=== PATIENT | female | born 1995 | race Caucasian/White ===

== ENCOUNTER 2017-01-07 17:45 | Emergency (ER) | payer OTHER ==
[2017-01-07] MEDS ORDERED: SODIUM CHLORIDE 0.9% 1,000 ML IV STA (18:38)
[2017-01-07] MEDS ORDERED: ACETAMINOPHEN TAB 500 MG TAB PO STA (18:38)
--- NOTE | 2017-01-07 18:45 | ED ---
Abdominal Pain HPI - General Chief Complaint: Abdominal Pain Stated Complaint: ABDOMINAL PAIN, 8 WEEKS Time Seen by Provider: 01/07/17 18:34 Source: patient, RN notes reviewed Mode of arrival: ambulatory Limitations: no limitations - History of Present Illness Initial Comments: 21-year-old female presents to the emergency Department chief complaint of lower abdominal pain. Patient states this lower abdominal pain started last 2 weeks. Patient states she is currently . Patient states last menstrual cycle she believes was in the middle of October. Patient states she is a . Patient states she's had no fever chills nausea vomiting with this. Patient states she was concerned due to the continued pain so she thought that she should be seen. Patient states she's having no vaginal bleeding. Patient states no change in discharge. Patient states that she thought that she should be reevaluated. Patient states that her ENTRY LEVEL MARKETING ASSISTANT appointment coming up. We'll. Patient denies any ultrasound in this yet.Patient denies any recent fever, chills, shortness of breath, chest pain, back pain, nausea vomiting, numbness or tingling, dysuria or hematuria, constipation or diarrhea, headaches or visual changes, or any other current symptoms. - Related Data Home Medications Medication Instructions Recorded Confirmed Pediatric Multivit Comb #25/FA 600 mcg PO BID 01/07/17 01/07/17 [Flintstones Multivit Chew Tab] Allergies Allergy/AdvReac Type Severity Reaction Status Date / Time raspberry Allergy Rash/Hives Verified 01/07/17 19:29 Review of Systems ROS Statement: Those systems with pertinent positive or pertinent negative responses have been documented in the HPI. ROS Other: All systems not noted in ROS Statement are negative. Past Medical History Past Medical History: No Reported History Additional Past Medical History / Comment(s): ovarian cysts History of Any Multi-Drug Resistant Organisms: None Reported Additional Past Surgical History / Comment(s): nasel Past Psychological History: No Psychological Hx Reported Smoking Status: Current every day smoker Past Alcohol Use History: None Reported Past Drug Use History: None Reported General Exam - General Exam Comments Initial Comments: General: The patient is awake and alert, in no distress, and does not appear acutely ill. Eye: Pupils are equal, round and reactive to light, extra-ocular movements are intact; there is normal conjunctiva bilaterally. No signs of icterus. Ears, nose, mouth and throat: There are moist mucous membranes. Neck: The neck is supple, there is no tenderness. Cardiovascular: There is a regular rate and rhythm. No murmur, rub or gallop is appreciated. Respiratory: Lungs are clear to auscultation, respirations are non-labored, breath sounds are equal. No wheezes, stridor, rales, or rhonchi. Gastrointestinal: Soft, non-distended, suprapubic tenderness of the abdomen without masses or organomegaly noted. There is no rebound or guarding present. No CVA tenderness. Bowel sounds are unremarkable. Back: There is no tenderness to palpation in the midline. There is no obvious deformity. No rashes noted. Musculoskeletal: Normal ROM, no tenderness, There is no pedal edema. There is no calf tenderness or swelling. Sensation intact. Pulses equal bilaterally 2+. Neurological: CN II-XII intact, There are no obvious motor or sensory deficits. Coordination appears grossly intact. Speech is normal. Skin: Skin is warm and dry and no rashes or lesions are noted. Psychiatric: Cooperative, appropriate mood & affect, normal judgment. Limitations: no limitations Course Vital Signs 01/07/17 01/07/17 17:56 19:07 Temperature 98.9 F 98.1 F Pulse Rate 95 98 Respiratory 18 18 Rate Blood Pressure 111/72 110/61 O2 Sat by Pulse 100 98 Oximetry Medical Decision Making - Medical Decision Making 21-year-old female presents to the emergency Department chief complaint of suprapubic abdominal pain. At this time patient's CHILD AND FAMILY THERAPIST ON A WEEK FEMALE. THERE IS APPEARS SOME SUBCHORIONIC BLEEDS. PATIENT HAS HAD NO BLEEDING AT THIS TIME. PATIENT IS A BE RH+. AT THIS TIME THE PATIENT WILL BE DISCHARGED HOME. WE GIVE HER PRESCRIPTION TO FOLLOW-UP ON THE REPEAT HCG QUANTITATIVE WE DISCUSSED FOLLOW-UP WITH ENTRY LEVEL MARKETING ASSISTANT AND RETURN PARAMETERS. THE PATIENT STATED THAT SHE. SHE WILL BE DISCHARGED HOME. - Lab Data Result diagrams: 01/07/17 18:55 01/07/17 18:55 Lab Results 01/07/17 01/07/17 01/07/17 Range/Units 18:55 18:55 18:55 WBC 8.4 (4.0-11.0) k/uL RBC 4.54 (3.80-5.40) m/uL Hgb 14.0 (11.4-16.0) gm/dL Hct 40.9 (34.0-46.0) % MCV 90.0 (80.0-100.0) fL MCH 30.8 (25.0-35.0) pg MCHC 34.2 (31.0-37.0) g/dL RDW 12.5 (11.5-15.5) % Plt Count 251 (150-450) k/uL Neutrophils % 73 % Lymphocytes % 19 % Monocytes % 4 % Eosinophils % 1 % Basophils % 1 % Neutrophils # 6.1 (1.3-7.7) k/uL Lymphocytes # 1.6 (1.0-4.8) k/uL Monocytes # 0.4 (0-1.0) k/uL Eosinophils # 0.1 (0-0.7) k/uL Basophils # 0.0 (0-0.2) k/uL Sodium 137 (137-145) mmol/L Potassium 4.2 (3.5-5.1) mmol/L Chloride 101 (98-107) mmol/L Carbon Dioxide 25 (22-30) mmol/L Anion Gap 11 mmol/L BUN 8 (7-17) mg/dL Creatinine 0.51 L (0.52-1.04) mg/dL Est GFR (MDRD) Af Amer >60 (>60 ml/min/1.73 sqM) Est GFR (MDRD) Non-Af >60 (>60 ml/min/1.73 sqM) Glucose 74 (74-99) mg/dL Calcium 9.8 (8.4-10.2) mg/dL Total Bilirubin 0.3 (0.2-1.3) mg/dL AST 26 (14-36) U/L ALT 40 (9-52) U/L Alkaline Phosphatase 53 (38-126) U/L Total Protein 7.9 (6.3-8.2) g/dL Albumin 4.5 (3.5-5.0) g/dL Amylase 66 (30-110) U/L HCG, Quant 763004.0 mIU/mL Urine Color Light Yellow Urine Appearance Cloudy H (Clear) Urine pH 7.0 (5.0-8.0) Ur Specific [place] 1.009 (1.001-1.035) Urine Protein Negative (Negative) Urine Glucose (UA) Negative (Negative) Urine Ketones Negative (Negative) Urine Blood Negative (Negative) Urine Nitrate Negative (Negative) Urine Bilirubin Negative (Negative) Urine Urobilinogen <2.0 (<2.0) mg/dL Ur Leukocyte Esterase Negative (Negative) Urine RBC 1 (0-5) /hpf Ur Squamous Epith Cells 1 (0-4) /hpf Urine Yeast (Budding) Few H (None) /hpf Blood Type Blood Type Recheck 01/07/17 Range/Units 18:55 WBC (4.0-11.0) k/uL RBC (3.80-5.40) m/uL Hgb (11.4-16.0) gm/dL Hct (34.0-46.0) % MCV (80.0-100.0) fL MCH (25.0-35.0) pg MCHC (31.0-37.0) g/dL RDW (11.5-15.5) % Plt Count (150-450) k/uL Neutrophils % % Lymphocytes % % Monocytes % % Eosinophils % % Basophils % % Neutrophils # (1.3-7.7) k/uL Lymphocytes # (1.0-4.8) k/uL Monocytes # (0-1.0) k/uL Eosinophils # (0-0.7) k/uL Basophils # (0-0.2) k/uL Sodium (137-145) mmol/L Potassium (3.5-5.1) mmol/L Chloride (98-107) mmol/L Carbon Dioxide (22-30) mmol/L Anion Gap mmol/L BUN (7-17) mg/dL Creatinine (0.52-1.04) mg/dL Est GFR (MDRD) Af Amer (>60 ml/min/1.73 sqM) Est GFR (MDRD) Non-Af (>60 ml/min/1.73 sqM) Glucose (74-99) mg/dL Calcium (8.4-10.2) mg/dL Total Bilirubin (0.2-1.3) mg/dL AST (14-36) U/L ALT (9-52) U/L Alkaline Phosphatase (38-126) U/L Total Protein (6.3-8.2) g/dL Albumin (3.5-5.0) g/dL Amylase (30-110) U/L HCG, Quant mIU/mL Urine Color Urine Appearance (Clear) Urine pH (5.0-8.0) Ur Specific [place] (1.001-1.035) Urine Protein (Negative) Urine Glucose (UA) (Negative) Urine Ketones (Negative) Urine Blood (Negative) Urine Nitrate (Negative) Urine Bilirubin (Negative) Urine Urobilinogen (<2.0) mg/dL Ur Leukocyte Esterase (Negative) Urine RBC (0-5) /hpf Ur Squamous Epith Cells (0-4) /hpf Urine Yeast (Budding) (None) /hpf Blood Type A Positive Blood Type Recheck No - Radiology Data Radiology results: report reviewed, image reviewed Disposition Clinical Impression: Abdominal pain in Disposition: HOME SELF-CARE Condition: Stable Instructions: Abdominal Pain in (ED) Additional Instructions: Please use medication as discussed. Please follow up with family doctor if symptoms have not improved over the next two days. Please return to the emergency room if your symptoms increase or worsen or for any other concerns. Referrals: Clarita Petersen MD [Primary Care Provider] - 1-2 days Time of Disposition: 21:36
[2017-01-07 19:15] VITALS: TEMP 98.1
[2017-01-07 19:19] LABS: Appearance,Urine Cloudy (Clear); Bilirubin,Urine Negative (Negative); Glucose,Urine (UA) Negative (Negative); Ketones,Urine Negative (Negative); Leukocyte Esterase,Urine Negative (Negative); Nitrite,Urine Negative (Negative); Particle Count 8313; Protein,Urine Negative (Negative); RBC,Urine 1 /hpf (0-5); Specific Gravity,Urine 1.009 (1.001-1.035); Squamous Epithelial Cell,Urine 1 /hpf (0-4); UA Billing (MACRO vs. MICRO) MICRO; Urobilinogen,Urine <2.0 mg/dL (<2.0)
[2017-01-07 19:21] LABS: ALT 40 U/L (9-52); AST 26 U/L (14-36); Alkaline Phosphatase 53 U/L (38-126); Amylase 66 U/L (30-110); Anion Gap 11 mmol/L; Blood Urea Nitrogen 8 mg/dL (7-17); Calcium 9.8 mg/dL (8.4-10.2); Carbon Dioxide 25 mmol/L (22-30); Chloride 101 mmol/L (98-107); Glucose 74 mg/dL (74-99); Non-African American GFR(MDRD) >60 (>60 ml/min/1.73 sqM); Potassium 4.2 mmol/L (3.5-5.1); Sodium 137 mmol/L (137-145); Total Bilirubin 0.3 mg/dL (0.2-1.3); Total Protein 7.9 g/dL (6.3-8.2)
[2017-01-07 19:29] LABS: Basophils % (A) 1 %; CH 30.9; CHCM 34.4; Eosinophils # (A) 0.1 k/uL (0-0.7); Eosinophils % (A) 1 %; HCT 40.9 % (34.0-46.0); HDW 2.37; Luc # (Auto) 0.15; Luc % (Auto) 2; Lymphocytes # (A) 1.6 k/uL (1.0-4.8); Lymphocytes % (A) 19 %; MCH 30.8 pg (25.0-35.0); MCHC 34.2 g/dL (31.0-37.0); Mean Platelet Volume 8.1; Monocytes # (A) 0.4 k/uL (0-1.0); Monocytes % (A) 4 %; Neutrophils # (A) 6.1 k/uL (1.3-7.7); Neutrophils % (A) 73 %; RBC 4.54 m/uL (3.80-5.40); RDW 12.5 % (11.5-15.5); WBC 8.4 k/uL (4.0-11.0); WBC (Perox) 8.42
--- NOTE | 2017-01-07 20:54 | US ---
EXAMINATION TYPE: US OB <= 14 wk fetus DATE OF EXAM: 01/07/2017 7:50 PM COMPARISON: NONE CLINICAL HISTORY: Pain. Spotting on and off EXAM PERFORMED: Transabdominal (TA) EXAM MEASUREMENTS: GESTATIONAL AGE / DATING Physician Established: (8 weeks/3 days) EDC: 08/16/2017 Dates by LMP: (8 weeks/3 days) EDC: 08/16/2017 Dates by First Scan: No previous Dates by Current Scan for: (8 weeks/3 days) EDC: 08/16/2017 MATERNAL ANATOMY Uterus: 13.9 x 6.3 x 8.6 cm Right Ovary: 4.3 x 2.0 x 2.7 cm Left Ovary: 3.5 x 1.6 x 1.7 cm Post CDS / Adnexa: wnl Presence of free fluid: No Presence of corpus luteal cyst: No Presence of subchorionic bleed: Yes, two areas visualized, largest to the left of the gestational sac measuring1.8 x 1.8 x 1.3 cm GESTATION / SURVEY CRL: 1.86 cm (8 weeks/3 days) Yolk Sac (normal less than 6mm): 3 mm Heart Rate: 170 bpm Rhythm: Normal IUP: Viable IUP Date of LMP: 11/09/2016 Beta HcG (if available): Not available at time of exam TECHNOLOGIST IMPRESSION: Viable IUP, measurements congruent with dates. Probable subchorionic bleed Single live intrauterine gestation is confirmed as gestational sac, yolk sac, and pole are pres ent. Inferiorly in the uterus there are small curvilinear fluid collection measuring 1.3 x 0.5 x 2.0 cm felt to reflect small subchorionic hemorrhage along inferior margin of gestational sac. No free fl uid is seen in pelvic cul-de-sac. Towards end of exam a second curvilinear fluid collection to left o f midline of gestational sac measuring 1.3 x 1.8 x 1.8 cm is measured consistent with second small lyle bchorionic hemorrhage. Both ovaries are identified. No suspicious extraovarian adnexal masses seen bilaterally. IMPRESSION: Single live intrauterine gestation is present, mean crown-rump length is 1.9 cm corresponding to 8 we ek 3 day old fetus. 2 small subchorionic hemorrhages are noted. Consider short-term beta-hCG and ultr asound follow-up.
[2017-01-07 21:54] VITALS: BP 97/55; PULSE 96; RESP 16
== END 2017-01-07 21:54 | disposition home or self-care (01) ==
LOC: EC 17:45
DX: R10.30 Lower abdominal pain, unspecified (principal); O26.891 Other specified pregnancy related conditions, first trimester; Z3A.08 8 weeks gestation of pregnancy; O99.331 Smoking (tobacco) complicating pregnancy, first trimester; Z91.018 Allergy to other foods
CPT/HCPCS: 36415; 76801; 80053; 81001; 82150; 84702; 85025; 86900; 86901; 87086; 96360; 99284

== ENCOUNTER → 2017-01-22 | Outpatient (CLI) | payer OTHER ==
[2017-01-22 17:27] LABS: CH 30.5; CHCM 33.5; HCT 38.6 % (34.0-46.0); HDW 2.39; HGB 12.7 gm/dL (11.4-16.0); MCHC 32.8 g/dL (31.0-37.0); MCV 91.4 fL (80.0-100.0); Mean Platelet Volume 7.6; RBC 4.23 m/uL (3.80-5.40); RDW 12.5 % (11.5-15.5)
[2017-01-22 17:36] LABS: Appearance,Urine Clear (Clear); Bacteria,Urine Moderate /hpf; Bilirubin,Urine Negative (Negative); Glucose,Urine (UA) Negative (Negative); Ketones,Urine Negative (Negative); Leukocyte Esterase,Urine Small (Negative); Mucus,Urine Rare /hpf; Nitrite,Urine Negative (Negative); Particle Count 1020; Protein,Urine Negative (Negative); RBC,Urine <1 /hpf (0-5); Specific Gravity,Urine 1.004 (1.001-1.035); Squamous Epithelial Cell,Urine 3 /hpf (0-4); UA Billing (MACRO vs. MICRO) MICRO; Urobilinogen,Urine <2.0 mg/dL (<2.0)
[2017-01-22 17:48] LABS: Glucose 74 mg/dL (74-99); Non-African American GFR(MDRD) >60 (>60 ml/min/1.73 sqM)
[2017-01-22 18:20] LABS: Hepatitis B Surface Ag Index 0.09
--- NOTE | 2017-01-22 20:35 | US ---
EXAMINATION TYPE: US OB <= 14 wk fetus DATE OF EXAM: 01/22/2017 4:42 PM COMPARISON: NONE CLINICAL HISTORY: O49.91 1ST trimester bleeding/spotting. Pelvic pain EXAM PERFORMED: Transabdominal (TA) EXAM MEASUREMENTS: GESTATIONAL AGE / DATING Physician Established: (10 weeks/4 days) EDC: 08/16/17 Dates by LMP: (10 weeks/4 days) EDC: 08/16/17 Dates by First Scan: (10 weeks/4 days) EDC: 08/16/17 Dates by Current Scan for: ( weeks/3 days) EDC: 08/17/17 MATERNAL ANATOMY Uterus: 15.3 x 6.1 x 8.2cm Right Ovary: 3.4 x 1.8 x 2.1cm Left Ovary: 3.1 x 1.8 x 1.8cm Post CDS / Adnexa: wnl Presence of free fluid: no Presence of subchorionic bleed: yes, inferior to gestational sac = 2.4 x 1.7 x 3.0cm GESTATION / SURVEY CRL: 3.5cm (10 weeks/3 days) Yolk Sac (normal less than 6mm): 0.4cm Heart Rate: 165 bpm Rhythm: Normal IUP: Viable IUP Date of LMP: 11/09/16 Beta HcG (if available): unavailable IMPRESSION: Single viable IUP 10wks/3days with JHONNY of 08/17/17. Subchorionic bleed adjacent to gestational sac
[2017-01-23 05:31] LABS: Toxoplasma Antibody (IgG) <3.0 IU/mL (<7.2)
== END | disposition home or self-care (01) ==
LOC: RADUSWWP 16:11
PROVIDERS: ATTEND Obstetrics & Gynecology
DX: O46.91 Antepartum hemorrhage, unspecified, first trimester (principal); Z3A.10 10 weeks gestation of pregnancy; Z34.81 Encounter for supervision of other normal pregnancy, first trimester
CPT/HCPCS: 76801; 81001; 82565; 82947; 85027; 86762; 86777; 86778; 86780; 86850; 86900; 86901; 87086; 87340; 87491; 87591

== ENCOUNTER 2017-06-07 23:48 | Outpatient (CLI) | payer OTHER ==
[2017-06-08 00:48] VITALS: BP 130/69; PULSE 104; RESP 16; TEMP 98.3
--- NOTE | 2017-06-08 08:01 | P.MSEPDOC ---
Presenting Problems - Arrival Data Date of Arrival on Unit: 06/07/17 Time of Arrival on Unit: 23:48 Mode of Transport: Wheelchair - Complaint OB-Reason for Admission/Chief Complaint: Other Comment: cramping, vaginal pain Medical History - Information : 2 Para: 1 Term: 1 : 0 Abortions: Spontaneous or Elective: 0 Number of Living Children: 1 - Gestational Age Expected Date of Delivery: 08/16/17 Gestational Age by JHONNY (wks/days): 30 Weeks and 1 Days Review of Systems - Review of Systems Constitutional: No problems Breast: No problems ENT: No problems Cardiovascular: No problems Respiratory: No problems Gastrointestinal: No problems Genitourinary: No problems Musculoskeletal: No problems Neurological: No problems Skin: No problems Vital Signs - Temperature Temperature: 98.3 F Temperature Source: Oral - Pulse Right Sitting Brachial Pulse Rate: 104 Pulse Assessment Method: Automatic Cuff - Respirations Respiratory Rate: 16 Oxygen Delivery Method: Room Air O2 Sat by Pulse Oximetry: 98 - Blood Pressure Right Arm Sitting Blood Pressure: 130/69 Blood Pressure Mean: 89 Blood Pressure Source: Automatic Cuff Medical Screen Scoring (Pre) - Cervical Exam Dilation: Exam Deferred Effacement: Exam Deferred Membranes: Intact - Uterine Contractions Frequency: N/A Duration: N/A Intensity: N/A - Maternal Vital Signs Maternal Temperature: N/A Maternal Blood Pressure: N/A Signs of Preeclampsia: N/A Maternal Respirations: N/A - Maternal Trauma Maternal Trauma: N/A - Assessment Baseline FHR: 135 Heart Rate - NICHD Category: Category I (Normal) = 0 NST: Reactive Position: N/A Station: N/A - Total Score Total Score (Pre): 0 - Level of Risk Level of Risk: Low (0-5) Physician Notification (Pre) - Physician Notified Physician Notified Date: 06/08/17 Physician Notified Time: 00:35 Physician/Practitioner Notifed:: Dr Gamboa New Order Received: Yes - Notification Comment Comment: discharge order recieved Medical Screen Scoring (Post) - Cervical Exam Dilation: Exam Deferred Effacement: Exam Deferred Membranes: Intact - Uterine Contractions Frequency: N/A Duration: N/A Intensity: N/A - Maternal Vital Signs Maternal Temperature: N/A Maternal Blood Pressure: N/A Signs of Preeclampsia: N/A Maternal Respirations: N/A - Maternal Trauma Maternal Trauma: N/A - Assessment Heart Rate: 135 Heart Rate - NICHD Category: Category I (Normal) = 0 NST: Reactive Position: N/A - Total Score Total Score (Post): 0 - Post Treatment Level of Risk Post Treatment Level of Risk: N/A Physician Notification (Post) - Physician Notified Physician Notified Date: 06/08/17 Physician Notified Time: 00:35 Physician/Practitioner Notified:: DR GAMBOA New Order Received: Yes Disposition - Disposition OB Disposition: Discharge to home, Written follow up instructions reviewed Discharge Date: 06/08/17 Discharge Time: 00:40 I agree with the RN Medical Screening Exam: Yes Risk & Benefit of care provided described in d/c instruction: Yes Diagnosis: PELVIC AND PERINEAL PAIN
== END 2017-06-08 00:40 | disposition home or self-care (01) ==
LOC: FBPOP 23:48
PROVIDERS: ATTEND Obstetrics & Gynecology
DX: O99.89 Other specified diseases and conditions complicating pregnancy, childbirth and the puerperium (principal); R10.2 Pelvic and perineal pain; Z3A.30 30 weeks gestation of pregnancy
CPT/HCPCS: 59025; G0463; 99213

== ENCOUNTER → 2017-06-24 | Outpatient (CLI) | payer OTHER ==
[2017-06-24 16:42] LABS: CH 28.8; HCT 33.2 % (34.0-46.0); HDW 2.94; HGB 11.1 gm/dL (11.4-16.0); MCH 29.3 pg (25.0-35.0); MCHC 33.3 g/dL (31.0-37.0); MCV 87.9 fL (80.0-100.0); Mean Platelet Volume 8.2; RBC 3.78 m/uL (3.80-5.40); RDW 13.6 % (11.5-15.5); WBC 8.5 k/uL (4.0-11.0)
== END | disposition home or self-care (01) ==
LOC: LABWHC1 15:31
PROVIDERS: ATTEND Obstetrics & Gynecology
DX: Z34.83 Encounter for supervision of other normal pregnancy, third trimester (principal)
CPT/HCPCS: 36415; 82950; 85027

== ENCOUNTER 2017-07-27 04:35 | Outpatient (CLI) | payer OTHER ==
[2017-07-27 05:26] VITALS: BP 114/72; PULSE 136; RESP 16; TEMP 97.8
[2017-07-27] MEDS ORDERED: LACTATED RINGERS 1,000 ML IV SCH (05:30)
--- NOTE | 2017-07-27 07:29 | P.MSEPDOC ---
Presenting Problems - Arrival Data Date of Arrival on Unit: 07/27/17 Time of Arrival on Unit: 04:39 Mode of Transport: Wheelchair - Complaint OB-Reason for Admission/Chief Complaint: Possible Onset of Labor Medical History - Information : 2 Para: 1 Term: 1 : 0 Abortions: Spontaneous or Elective: 0 Number of Living Children: 1 - Gestational Age Gestational Age by JHONNY (wks/days): 37 Weeks and 1 Days Review of Systems - Review of Systems Constitutional: No problems Breast: No problems ENT: No problems Cardiovascular: No problems Respiratory: No problems Gastrointestinal: No problems Genitourinary: No problems Musculoskeletal: No problems Neurological: No problems Skin: No problems Vital Signs - Temperature Temperature: 97.8 F Temperature Source: Oral - Pulse Right Sitting Brachial Pulse Rate: 136 Pulse Assessment Method: Automatic Cuff - Respirations Respiratory Rate: 16 Oxygen Delivery Method: Room Air O2 Sat by Pulse Oximetry: 97 - Blood Pressure Right Arm Sitting Blood Pressure: 114/72 Blood Pressure Mean: 86 Blood Pressure Source: Automatic Cuff Medical Screen Scoring (Pre) - Cervical Exam Dilation: 1-3 cm = 1 Membranes: Intact - Uterine Contractions Frequency: > or = 36 weeks =2 Duration: > 40 seconds = 2 Intensity: N/A - Maternal Vital Signs Maternal Temperature: N/A Maternal Blood Pressure: N/A Signs of Preeclampsia: N/A Maternal Respirations: N/A - Maternal Trauma Maternal Trauma: N/A - Assessment Baseline FHR: 145 Heart Rate - NICHD Category: Category I (Normal) = 0 NST: Reactive - Total Score Total Score (Pre): 5 - Level of Risk Level of Risk: Low (0-5) Physician Notification (Pre) - Physician Notified Physician Notified Date: 07/27/17 Physician Notified Time: 05:21 Physician/Practitioner Notifed:: stewart Spoke With: stewart New Order Received: Yes - Notification Comment Comment: start IV, give 1L bolus of LR Medical Screen Scoring (Post) - Cervical Exam Dilation: 1-3 cm = 1 Membranes: Intact - Uterine Contractions Frequency: N/A - Maternal Vital Signs Maternal Temperature: N/A Maternal Blood Pressure: N/A Signs of Preeclampsia: N/A Maternal Respirations: N/A - Maternal Trauma Maternal Trauma: N/A - Assessment Heart Rate: 145 Heart Rate - NICHD Category: Category I (Normal) = 0 NST: Reactive Position: N/A - Total Score Total Score (Post): 1 - Post Treatment Level of Risk Post Treatment Level of Risk: Low (0-5) Physician Notification (Post) - Physician Notified Physician Notified Date: 07/27/17 Physician Notified Time: 06:40 Physician/Practitioner Notified:: stewart Spoke With: stewart New Order Received: Yes - Notification Comment Comment: d/c home Disposition - Disposition OB Disposition: Discharge to home Discharge Date: 07/27/17 Discharge Time: 06:50 I agree with the RN Medical Screening Exam: Yes Risk & Benefit of care provided described in d/c instruction: Yes Diagnosis: FALSE LABOR AT OR AFTER 37 COMPLETED WEEKS OF GESTATION
== END 2017-07-27 06:50 | disposition home or self-care (01) ==
LOC: FBPOP 04:35
PROVIDERS: ATTEND Obstetrics & Gynecology
DX: O47.1 False labor at or after 37 completed weeks of gestation (principal); Z3A.37 37 weeks gestation of pregnancy
CPT/HCPCS: 59025; 96360; G0463; 99215

== ENCOUNTER 2017-08-16 10:39 | Outpatient (CLI) | payer OTHER ==
[2017-08-16 11:27] VITALS: BP 142/81; PULSE 104; RESP 16; TEMP 97.9
--- NOTE | 2017-08-17 06:49 | P.MSEPDOC ---
Presenting Problems - Arrival Data Date of Arrival on Unit: 08/16/17 Time of Arrival on Unit: 10:45 Mode of Transport: Wheelchair - Complaint OB-Reason for Admission/Chief Complaint: Possible Onset of Labor Medical History - Information : 2 Para: 1 Term: 0 : 0 Abortions: Spontaneous or Elective: 0 Number of Living Children: 1 - Gestational Age Gestational Age by JHONNY (wks/days): 40 Weeks and 0 Days Review of Systems - Review of Systems Constitutional: No problems Breast: No problems ENT: No problems Cardiovascular: No problems Respiratory: No problems Gastrointestinal: No problems Genitourinary: No problems Musculoskeletal: No problems Neurological: No problems Skin: No problems Vital Signs - Temperature Temperature: 97.9 F Temperature Source: Tympanic - Pulse Right Radial Pulse Rate: 104 Pulse Assessment Method: Automatic Cuff - Respirations Respiratory Rate: 16 Oxygen Delivery Method: Room Air - Blood Pressure Right Arm Blood Pressure: 142/81 Blood Pressure Mean: 101 Blood Pressure Source: Automatic Cuff Medical Screen Scoring (Pre) - Cervical Exam Dilation: 1-3 cm = 1 Membranes: Intact - Uterine Contractions Frequency: > 5 minutes apart = 1 Duration: N/A Intensity: N/A - Maternal Vital Signs Maternal Temperature: N/A Maternal Blood Pressure: Systolic >139 = 2 Signs of Preeclampsia: N/A Maternal Respirations: N/A - Maternal Trauma Maternal Trauma: N/A - Assessment Heart Rate - NICHD Category: Category I (Normal) = 0 NST: Reactive Position: N/A - Total Score Total Score (Pre): 4 - Level of Risk Level of Risk: Low (0-5) Physician Notification (Pre) - Physician Notified Physician Notified Date: 08/16/17 Physician Notified Time: 11:15 Physician/Practitioner Notifed:: stewart Spoke With: stewart New Order Received: No (triage orders) - Notification Comment Comment: pt to return when contx stronger . discharge instructions given Disposition - Disposition OB Disposition: Physician follow up in office, Discharge to home Discharge Date: 08/16/17 Discharge Time: 11:50 I agree with the RN Medical Screening Exam: Yes Risk & Benefit of care provided described in d/c instruction: Yes Diagnosis: FALSE LABOR AT OR AFTER 37 COMPLETED WEEKS OF GESTATION
== END 2017-08-16 11:50 | disposition home or self-care (01) ==
LOC: FBPOP 10:39
PROVIDERS: ATTEND Obstetrics & Gynecology
DX: O47.1 False labor at or after 37 completed weeks of gestation (principal); Z3A.40 40 weeks gestation of pregnancy
CPT/HCPCS: 59025; G0463; 99213

== ENCOUNTER 2025-05-02 03:00 | Outpatient (CLI) | payer OTHER ==
[2025-05-02] MEDS: LACTATED RINGERS 1,000 ML IV SCH (04:37)
[2025-05-02 05:57] VITALS: BP 138/87; PULSE 100; RESP 18; TEMP 96.7
--- NOTE | 2025-05-23 09:23 | P.MSEPDOC ---
Presenting Problems - Arrival Data Date of Arrival on Unit: 05/02/25 Time of Arrival on Unit: 03:00 Mode of Transport: Wheelchair - Complaint OB-Reason for Admission/Chief Complaint: Possible Onset of Labor, Rule Out SROM Comment: Pt came in with complaints of ctx 2-3minutes apart and possible rupture of fluid. At 0030 pt states was leaking clear fluid Medical History - Information : 3 Para: 2 Term: 2 : 0 Abortions: Spontaneous or Elective: 0 Number of Living Children: 2 - Gestational Age Gestational Age by JHONNY (wks/days): 36 Weeks and 2 Days Review of Systems - Review of Systems Constitutional: No problems Breast: No problems ENT: No problems Cardiovascular: No problems Respiratory: No problems Gastrointestinal: No problems Genitourinary: No problems Musculoskeletal: No problems Neurological: No problems Skin: No problems Vital Signs - Temperature Temperature: 96.7 F Temperature Source: Temporal Artery Scan - Pulse Pulse Oximetery Pulse Rate: 100 Pulse Assessment Method: Pulse Oximetry - Respirations Respiratory Rate: 18 Oxygen Delivery Method: Room Air O2 Sat by Pulse Oximetry: 96 - Blood Pressure Right Arm Blood Pressure: 138/87 Blood Pressure Mean: 104 Blood Pressure Source: Automatic Cuff Medical Screen Scoring - Uterine Contractions Frequency From (mins): 1 Frequency To (mins): 7 Duration From (seconds): 40 Duration To (seconds): 70 Resting: Soft to palpation - Assessment - Baby A Baseline FHR: 130 Heart Rate - NICHD Category: Category I (Normal) NST: Reactive Physician Notification - Physician Notified Physician Notified Date: 05/02/25 Physician Notified Time: 04:22 Physician: Miguel Vides Order Received: Yes (2L of Lactated ringer and recheck cervix in another hour) Maternal Triage Index - Maternal Triage Index Presenting for scheduled procedure w/no complaint: No - Stat/Priority 1 Stat Priority 1: No - Urgent/Priority 2 Urgent Priority 2: No - Prompt/Priority 3 Prompt Priority 3: Yes Criteria Met for Priority 3: Pt 36 2/7 bala 1-2 minutes apart with c/o leaking of fluid Disposition - Disposition OB Disposition: Discharge to home Discharge Date: 05/02/25 Discharge Time: 05:45 I agree with the RN Medical Screening Exam: Yes Physician's MSE Comment: I have neither seen nor examined the patient. Case reviewed; plan agreed upon as documented in EMR&OBIX.: Yes Diagnosis: RELATED CONDITIONS, UNSPECIFIED, THIRD TRIMESTER
== END 2025-05-02 05:45 | disposition home or self-care (01) ==
LOC: FBPOP 03:00
PROVIDERS: ATTEND Obstetrics & Gynecology
DX: O26.893 Other specified pregnancy related conditions, third trimester (principal); Z3A.36 36 weeks gestation of pregnancy; Z91.030 Bee allergy status; Z87.891 Personal history of nicotine dependence; Z91.018 Allergy to other foods
CPT/HCPCS: 59025; 96360; 84112; G0463; 96361; 96365; 99214

== ENCOUNTER 2025-05-12 18:37 | Outpatient (CLI) | payer OTHER ==
[2025-05-12] MEDS: LACTATED RINGERS 1,000 ML IV ONE (19:20)
[2025-05-12 20:12] VITALS: BP 134/90; PULSE 110; RESP 16; TEMP 96.5
--- NOTE | 2025-05-23 09:28 | P.MSEPDOC ---
Presenting Problems - Arrival Data Date of Arrival on Unit: 05/12/25 Time of Arrival on Unit: 18:37 Mode of Transport: Ambulatory - Complaint OB-Reason for Admission/Chief Complaint: Rule Out SROM Comment: pt comes in with possible ROM at 1730 Medical History - Information : 3 Para: 2 Term: 2 : 0 Abortions: Spontaneous or Elective: 0 Number of Living Children: 2 - Gestational Age Gestational Age by JHONNY (wks/days): 37 Weeks and 5 Days Review of Systems - Review of Systems Constitutional: No problems Breast: No problems ENT: No problems Cardiovascular: No problems Respiratory: No problems Gastrointestinal: No problems Genitourinary: No problems Musculoskeletal: No problems Neurological: No problems Skin: No problems Vital Signs - Temperature Temperature: 96.5 F Temperature Source: Temporal Artery Scan - Pulse Pulse Oximetery Pulse Rate: 110 Pulse Assessment Method: Pulse Oximetry - Respirations Respiratory Rate: 16 Oxygen Delivery Method: Room Air O2 Sat by Pulse Oximetry: 98 - Blood Pressure Right Arm Blood Pressure: 134/90 Blood Pressure Mean: 104 Blood Pressure Source: Automatic Cuff Medical Screen Scoring - Cervical Exam Dilation (cm): 0 Effacement (%): 50 Station: -2 Membranes: Intact - Uterine Contractions Frequency From (mins): 2 Frequency To (mins): 7 Duration From (seconds): 40 Duration To (seconds): 60 Intensity: Mild Resting: Soft to palpation - Assessment - Baby A Baseline FHR: 140 Heart Rate - NICHD Category: Category I (Normal) NST: Reactive Physician Notification - Physician Notified Physician Notified Date: 05/12/25 Physician Notified Time: 19:05 Physician: Luli Caceres Order Received: Yes Maternal Triage Index - Maternal Triage Index Presenting for scheduled procedure w/no complaint: No - Stat/Priority 1 Stat Priority 1: No - Urgent/Priority 2 Urgent Priority 2: No - Prompt/Priority 3 Prompt Priority 3: No - Non-Urgent/Priority 4 Non-Urgent Priority 4: Yes Criteria Met for Priority 4: R/O SROM had a gush of fluid at 1730. amnisure neg Disposition - Disposition OB Disposition: Discharge to home Discharge Date: 05/12/25 Discharge Time: 20:05 I agree with the RN Medical Screening Exam: Yes Physician's MSE Comment: I have neither seen nor examined the patient. Case reviewed; plan agreed upon as documented in EMR&OBIX.: Yes Diagnosis: RELATED CONDITIONS, UNSPECIFIED, THIRD TRIMESTER
== END 2025-05-12 20:05 | disposition home or self-care (01) ==
LOC: FBPOP 18:37
PROVIDERS: ATTEND Obstetrics & Gynecology
DX: O26.893 Other specified pregnancy related conditions, third trimester (principal); Z3A.37 37 weeks gestation of pregnancy; Z91.030 Bee allergy status; Z91.018 Allergy to other foods; Z87.891 Personal history of nicotine dependence
CPT/HCPCS: 59025; 96360; 84112; G0463; 99213; 99214

== ENCOUNTER 2025-05-21 05:50 | Inpatient (IN) | payer OTHER ==
[2025-05-21] MEDS ORDERED: TERBUTALINE 1 MG/ML VIAL SQ PRN (06:22)
[2025-05-21] MEDS ORDERED: OXYTOCIN 10 UNIT/ML 1 ML VIAL IM PRN ×2 (06:22→09:08)
[2025-05-21] MEDS ORDERED: TRANEXAMIC 1,000 MG/100ML-NACL 1,000 MG in EMPTY BAG 1 BAG IV PRN (06:22)
[2025-05-21] MEDS ORDERED: METHYLERGONOVINE 0.2 MG/ML 1 ML AMP IM PRN (06:22)
[2025-05-21] MEDS ORDERED: LIDOCAINE 0.5% (PF) 5 MG/ML (50 ML SDV) SQ PRN (06:22)
[2025-05-21] MEDS ORDERED: CARBOPROST TROMETHAMINE 250 MCG/ML 1 ML AMP IM PRN (06:22)
[2025-05-21] MEDS: LACTATED RINGERS 1,000 ML IV SCH ×2 (06:39→16:15)
[2025-05-21] MEDS: OXYTOCIN 30 UNITS/500 ML NS 30 UNIT in SALINE 1 500ML.BAG IV SCH (06:52)
[2025-05-21 06:54] LABS: Basophils # (A) 0.01 10*3/uL (0.00-0.10); Basophils % (A) 0.1 %; Eosinophils # (A) 0.13 10*3/uL (0.04-0.35); Eosinophils % (A) 1.7 %; HCT 39.7 % (37.2-46.3); HGB 13.1 g/dL (12.0-15.0); Lymphocytes # (A) 1.66 10*3/uL (0.90-5.00); Lymphocytes % (A) 22.2 %; MCH 28.9 pg (27.0-32.0); MCHC 33.0 g/dL (32.0-37.0); MCV 87.4 fL (80.0-97.0); Monocytes # (A) 0.55 10*3/uL (0.20-1.00); Monocytes % (A) 7.4 %; Neutrophils # (A) 5.11 10*3/uL (1.80-7.70); Neutrophils % (A) 68.3 %; Platelet Count 257 10*3/uL (140-440); RBC 4.54 10*6/uL (4.10-5.20); RDW 13.8 % (11.5-14.5); WBC 7.48 10*3/uL (4.50-10.00)
[2025-05-21] MEDS ORDERED: OXYTOCIN 30 UNITS/500 ML NS 30 UNIT in SALINE 1 500ML.BAG IV SCH (09:15)
--- NOTE | 2025-05-21 13:21 | P.HPOB ---
History of Present Illness H&P Date: 05/21/25 Chief Complaint: 39-0/7 weeks, elective induction The patient is a 29-year-old 3 para 2-0-0-2 admitted at 39-0/7 weeks as established by last menstrual period and confirmed by second trimester ultrasound. She is not initially admitted for elective induction of labor with all signs reassuring, category 1 heart rate tracing. On labor and delivery, she initially had Pitocin augmentation started and her cervix was checked in an attempt to rupture of membranes. However, the presenting part could not be determined by vaginal examination. I then performed bedside ultrasound which demonstrated breech presentation with the head in the right upper quadrant. The Pitocin was halted and discussion was undertaken with the patient regarding discontinuation of induction and giving the fetus another week to revert versus proceeding with primary low-transverse section. She and her partner have agreed to the latter and we will proceed with primary low- transverse section. Obstetrical history: 3 para 2-0-0-2 with 2 term vaginal deliveries without complications. Current statistics are listed in history of present illness. EDC of 05/28/2025 was established by last menstrual period confirmed by second trimester ultrasound. Laboratory workup demonstrates a blood type of A+ with a negative antibody screen. Rubella status is immune. The remainder of the laboratory workup was within normal limits. 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 Early Glucola was normal as was second trimester Glucola. Group B strep status is negative. Gynecologic history: Unremarkable with no history of any infections to include STDs. Review of Systems Review of systems is confined to history of present illness. Past Medical History Past Medical History: Asthma Additional Past Medical History / Comment(s): ovarian cysts History of Any Multi-Drug Resistant Organisms: None Reported Additional Past Surgical History / Comment(s): nasal, facial surgery at age 4 Past Anesthesia/Blood Transfusion Reactions: No Reported Reaction Past Psychological History: No Psychological Hx Reported Smoking Status: Former smoker Past Alcohol Use History: None Reported Past Drug Use History: None Reported - Past Family History Mother Family Medical History: No Reported History Medications and Allergies Home Medications Medication Instructions Recorded Confirmed Type Pedi Multivit No.25/Folic Acid 600 mcg PO BID 01/07/17 05/21/25 History [Flintstones Multivit Chew Tab] Allergies Allergy/AdvReac Type Severity Reaction Status Date / Time bee venom protein (honey bee) Allergy Rash/Hives Verified 05/12/25 18:39 raspberry Allergy Rash/Hives Verified 05/12/25 18:39 Exam Vital Signs Temp Pulse Resp BP Pulse Ox 05/21/25 06:19 97.9 F 100 16 113/71 97 Intake and Output 05/20/25 05/21/25 05/21/25 22:59 06:59 14:59 Other: Weight 108.862 kg In general, this is a well-developed, mild to moderately obese white female in no acute distress. Her heart has a regular rhythm and rate without murmur. Her lungs clear to auscultation bilateral in all rodriguez. Her abdomen is gravid, nondistended, has normal active bowel sounds, is soft, nontender, and without any palpable masses aside from the uterine fundus. Her extremities are without any cyanosis, clubbing, or significant edema and are nontender to palpation bilaterally. Digital cervical examination demonstrates her cervix to be 1+ centimeters dilated, thick, with the presentation undetermined by vaginal examined but confirmed to be breech by ultrasound. Results Result Diagrams: 05/21/25 06:22 Assessment and Plan (1) Breech presentation Current Visit: Yes Status: Acute Code(s): O32.1XX0 - MATERNAL CARE FOR BREECH PRESENTATION, UNSP SNOMED Code(s): 7021857 (2) Term Current Visit: Yes Status: Acute Code(s): Z34.90 - ENCNTR FOR SUPRVSN OF NORMAL , UNSP, UNSP TRIMESTER SNOMED Code(s): 56628079 Plan: The patient was initially admitted for Pitocin induction. She was discovered at the onset of the induction to have the fetus in breech presentation. After di scussion of options, the patient has decided to proceed with primary low- transverse section and will be taken to the operating room shortly to have that procedure performed. The risks and complications have been discussed at length.
[2025-05-21] MEDS: CITRIC ACID-SODIUM CITRATE 15 ML CUP PO ONE (14:40)
[2025-05-21] MEDS ORDERED: MORPHINE SULFATE (PF) 0.3 MG/0.3 ML SYR ONE (15:02)
[2025-05-21] MEDS ORDERED: KETOROLAC 15 MG/ML 1 ML VIAL ONE (15:02)
[2025-05-21] MEDS ORDERED: ONDANSETRON 4 MG/2 ML VIAL ONE (15:02)
[2025-05-21] MEDS ORDERED: NALBUPHINE (ANES) 10 MG/ML - 1 ML AMP ONE (15:02)
[2025-05-21] MEDS ORDERED: DEXAMETHASONE SOD PHOSPHATE 4 MG/ML 1 ML VIAL ONE (15:02)
[2025-05-21] MEDS ORDERED: OXYTOCIN 30 UNITS/500 ML NS BAG IV ONE (15:02)
[2025-05-21] MEDS ORDERED: ZOLPIDEM 5 MG TAB PO PRN (16:01)
[2025-05-21] MEDS ORDERED: diphenhydrAMINE 50 MG/ML 1 ML VIAL IVP PRN (16:01)
[2025-05-21] MEDS ORDERED: SIMETHICONE 80 MG CHEWABLE PO PRN (16:01)
[2025-05-21] MEDS ORDERED: ONDANSETRON 4 MG/2 ML VIAL IVP PRN (16:01)
[2025-05-21] MEDS ORDERED: METOCLOPRAMIDE 5 MG/ML 2 ML VIAL IVP PRN (16:01)
[2025-05-21] MEDS ORDERED: LANOLIN CREAM 1 GM TUBE TOPICAL PRN (16:01)
[2025-05-21] MEDS ORDERED: diphenhydrAMINE 25 MG CAP PO PRN (16:01)
[2025-05-21] MEDS ORDERED: NALOXONE 0.4 MG/ML 1 ML VIAL IV PRN (16:01)
--- NOTE | 2025-05-21 16:09 | P.OP ---
Date of Procedure: 05/21/25 Preoperative Diagnosis: #1. 39-0/7 weeks #2. Breech presentation Postoperative Diagnosis: Same Procedure(s) Performed: #1. Primary low-transverse section Anesthesia: spinal Surgeon: Miguel Vides Steeplechase Jockey #1: Shadia Yousif Estimated Blood Loss (ml): 472 IV fluids (ml): 900 Urine output (ml): 100 Pathology: none sent Condition: stable Disposition: floor Operative Findings: The patient had initially been admitted for induction of labor but, upon cervical check, presentation was in question. Bedside ultrasound performed by myself demonstrated the fetus to be in breech presentation. After discussion of options going forward, the patient opted to proceed with primary low-transverse section. She was ultimately taken to the operating room where she was delivered of a viable 7 pound 7 ounce baby boy with Apgars of 9 at 1 minute and 9 at 5 minutes delivered in the ander breech presentation with standard breech maneuvers. The placenta was delivered manually, intact, and grossly normal with a grossly normal three-vessel cord. The uterus, tubes, and ovaries were entirely normal to inspection. Description of Procedure: The patient was prepped and draped in usual fashion after spinal anesthesia was administered by the anesthesiologist. A Pfannenstiel incision was made and extended into the abdominal cavity without difficulty. The bladder peritoneum was significantly distal to the intended site of incision and was left intact. A 2 cm incision was made in the transverse plane of the lower uterine segment to enter the uterus at which time a significant amount of clear fluid was noted. The incision was extended about directions using the bandage scissors. The breech was encountered within the incision and delivered up and through the incision with remainder of the delivered onto the field with standard breech maneuvers. The cord was doubly clamped, cut, the passed very resuscitative measures with weight and Apgars as noted above. The placenta was delivered manually and intact as noted above. The uterus was exteriorized and the anterior cavity uterus rupture of any remaining placental or membranous fragments. The margins of the uterine incision were grasped with Mckinney clamps and the incision closed in 2 layers. The first layer was a running locking stitch of 0 chromic catgut from margin to margin followed by a running imbricating stitch of 0 chromic catgut from margin to margin. Reexamination of the incision demonstrated 2 spots of ongoing bleeding which were made hemostatic with [id number] stitches of 0 chromic catgut. The uterus and ovaries as well as tubes were normal to inspection as noted above. The posterior cul-de-sac was suctioned with a guard followed by laparotomy sponge. The uterus was replaced within the abdominal cavity and the gutters swept of intervening blood, fluid, or clot. Reinspection of the uterine incision demonstrated excellent hemostasis. The parietal peritoneum was loosely reapproximated and the layer of muscles examined and found to be hemostatic. The fascia was closed with a single running stitch of 0 Vicryl proceeding from margin to margin. The subcutaneous tissues were made hemostatic with the Bovie and then reapproximated with a running stitch of 3-0 plain catgut. The skin was reapproximated with a running subcuticular stitch of 4-0 Vicryl followed by half-inch Steri-Strips placed with Mastisol. Quantitative blood loss for the case was 472 mL. There were no complications. All sponge, instrument, and needle counts were correct. The patient tolerated the procedure well and proceeded to the recovery room in stable condition. Both mother and are resting comfortably in recovery.
[2025-05-21] MEDS: ACETAMINOPHEN IV (For NPO) 1,000 MG in EMPTY BAG 1 BAG IVPB STA (18:00)
[2025-05-21] MEDS: ACETAMINOPHEN TAB 500 MG TAB PO SCH (18:00)
[2025-05-21] MEDS: diphenhydrAMINE 50 MG/ML 1 ML VIAL IVP PRN (18:55)
[2025-05-21] MEDS: SENNOSIDES-DOCUSATE SODIUM 1 EACH TAB PO SCH (21:01)
[2025-05-22] MEDS: KETOROLAC 15 MG/ML 1 ML VIAL IVP PRN (00:11)
[2025-05-22] MEDS: IBUPROFEN 800 MG TAB PO SCH (00:15)
[2025-05-22 06:10] LABS: Basophils # (A) 0.02 10*3/uL (0.00-0.10); Basophils % (A) 0.2 %; Eosinophils # (A) 0.02 10*3/uL (0.04-0.35); Eosinophils % (A) 0.2 %; HCT 34.9 % (37.2-46.3); HGB 11.3 g/dL (12.0-15.0); Lymphocytes # (A) 1.58 10*3/uL (0.90-5.00); Lymphocytes % (A) 12.9 %; MCH 29.2 pg (27.0-32.0); MCHC 32.4 g/dL (32.0-37.0); MCV 90.2 fL (80.0-97.0); Monocytes # (A) 0.79 10*3/uL (0.20-1.00); Monocytes % (A) 6.4 %; Neutrophils # (A) 9.82 10*3/uL (1.80-7.70); Neutrophils % (A) 80.0 %; Platelet Count 215 10*3/uL (140-440); RBC 3.87 10*6/uL (4.10-5.20); RDW 13.8 % (11.5-14.5); WBC 12.27 10*3/uL (4.50-10.00)
--- NOTE | 2025-05-22 10:15 | P.PN ---
Progress Note - Text Adequate analgesia. No anesthetic complication.
--- NOTE | 2025-05-22 11:28 | P.PNOBGPC ---
Subjective - Subjective Patient reports: Reports appetite normal, Reports voiding normally, Reports pain well controlled, Reports ambulating normally : doing well, nursing well Objective - Vital Signs Latest vital signs: Vital Signs Temp Pulse Resp BP Pulse Ox 05/22/25 08:00 98.2 F 82 16 118/85 97 05/22/25 03:52 97.6 F 81 16 129/87 97 05/22/25 00:00 97.9 F 78 16 129/86 97 05/21/25 20:33 97.5 F L 87 16 127/85 98 05/21/25 18:05 97.9 F 75 16 142/80 05/21/25 17:50 75 17 122/70 05/21/25 17:35 104 H 16 131/71 05/21/25 17:20 79 15 129/73 05/21/25 17:05 78 18 131/83 05/21/25 16:50 88 16 116/78 05/21/25 16:35 79 16 117/74 97 05/21/25 16:20 77 16 118/74 97 05/21/25 16:05 96.7 F L 81 16 119/69 98 Intake and Output 05/21/25 05/22/25 05/22/25 22:59 06:59 14:59 Intake Total 18.433 500 Output Total 889 300 750 Balance -870.567 200 -750 Intake: IV 500 Intake, IV Titration 18.433 Amount Oxytocin 30 Units/500 ml 18.433 Ns 30 unit In Saline 1 500ml.bag @ Per Protocol IV .Q0M [facility] Rx#:[id number] Output: Urine 200 300 750 Uretheral ([place]) 300 Output, Quantitative 689 Blood Loss Other: Voiding Method Indwelling Catheter Indwelling Catheter # Voids 1 - Exam Extremities: Present: normal Abdomen: Present: normal appearance, soft. Absent: distention, tenderness Incision: Present: normal, dry, intact Uterus: Present: normal, firm (The uterine fundus is tonic and minimally tender below the umbilicus.) - Labs Labs: Abnormal Lab Results - Last 24 Hours (Table) 05/22/25 Range/Units 05:14 WBC 12.27 H (4.50-10.00) 10*3/uL RBC 3.87 L (4.10-5.20) 10*6/uL Hgb 11.3 L (12.0-15.0) g/dL Hct 34.9 L (37.2-46.3) % Neutrophils # 9.82 H (1.80-7.70) 10*3/uL Eosinophils # 0.02 L (0.04-0.35) 10*3/uL Assessment and Plan (1) Breech presentation Current Visit: Yes Status: Acute Code(s): O32.1XX0 - MATERNAL CARE FOR BREECH PRESENTATION, UNSP SNOMED Code(s): 4566891 (2) Term Current Visit: Yes Status: Acute Code(s): Z34.90 - ENCNTR FOR SUPRVSN OF NO RMAL , UNSP, UNSP TRIMESTER SNOMED Code(s): 92680495 (3) S/P section Current Visit: Yes Status: Acute Code(s): Z98.891 - HISTORY OF UTERINE SCAR FROM PREVIOUS SURGERY SNOMED Code(s): 155871371 Plan: Continue routine and postoperative care. I have encouraged patient ambulate in the hallways routinely. I would anticipate discharge home tomorrow pending no complications.
[2025-05-23 07:42] VITALS: BP 132/88; PULSE 82; RESP 18; TEMP 98.3
--- NOTE | 2025-05-23 09:00 | P.DS ---
Providers Date of admission: 05/21/25 05:50 Expected date of discharge: 05/23/25 Attending physician: Miguel Vides Primary care physician: Stated None - Discharge Diagnosis(es) (1) Breech presentation Current Visit: Yes Status: Acute (2) Term Current Visit: Yes Status: Acute (3) S/P section Current Visit: Yes Status: Acute Hospital Course: The patient is a 29-year-old 3 para 2-0-0-2 admitted at 39-0/7 weeks by good dating parameters. She was initially admitted for elective induction of labor with all signs reassuring, category 1 heart rate tracing. She was ultimately found at the beginning of the induction to be in breech presentation and the Pitocin induction was canceled in favor of primary low-transverse section. Her was otherwise essentially uncomplicated and group B strep status is negative. She was taken to the operating room where she underwent primary low-transverse section in an uncomplicated fashion and was delivered of a viable 7 pound 7 ounce baby boy with Apgars of 9 at 1 minute and 9 at 5 minutes in the breech presentation. Her and postoperative course was unremarkable with vital signs remaining stable and her temperature was afebrile throughout. She was deemed stable for discharge on and postoperative day #2. She was to follow-up in the office in 2 weeks for an incision check in 6 weeks routinely. Discharge instructions included calling for any significantly increased bleeding or foul-smelling lochia, significantly increased fever or abdominal pain, perineal complaints, breast complaints, incisional complaints, or anything else that concerned her. She was additionally instructed to have nothing in the vagina for at least 6 weeks time to include intercourse. She was to do no heavy lifting over the same period of time and she was lastly instructed to do no driving until off of all pain medications or 2 weeks time, whichever came first. She understood all of her instructions and agrees to follow-up as noted above. Discharge medications included continue vitamins as she has opted to breast-feed. She was otherwise to use [id number] analgesic pain medications. She was provided a prescription for oxycodone 5 mg, 1-2 p.o. every 6 hours as needed pain, #20 dispensed with no refills. Maternal blood type is A+ and rubella status is immune. Discharge hemoglobin and hematocrit were 11.3 and 34.9 respectively. Procedures: #1. Elective Pitocin induction, canceled #2. Primary low-transverse section Patient Condition at Discharge: Stable Plan - Discharge Summary New Discharge Prescriptions: No Action Pedi Multivit No.25/Folic Acid [Flintstones Multivit Chew Tab] 600 mcg PO BID Discharge Medication List Pedi Multivit No.25/Folic Acid [Flintstones Multivit Chew Tab] 600 mcg PO BID 01/07/17 [History] Follow up Appointment(s)/Referral(s): Miguel Vidse MD [STAFF PHYSICIAN] - 06/07/25 10:45 am (06/29/2025 @2:30 PM) Discharge Disposition: HOME SELF-CARE
== END 2025-05-23 12:25 | disposition home or self-care (01) | DRG 540 ==
LOC: 4FBP 05:50
PROVIDERS: ADMIT Obstetrics & Gynecology; ATTEND Obstetrics & Gynecology
PROC: 10D00Z1 Extraction of Products of Conception, Low, Open Approach (ICD-10-PCS; principal; 2025-05-21 06:00)
DX: O32.1XX0 Maternal care for breech presentation, not applicable or unspecified (principal); Z37.0 Single live birth; Z3A.39 39 weeks gestation of pregnancy; Z87.891 Personal history of nicotine dependence; Z53.09 Procedure and treatment not carried out because of other contraindication
CPT/HCPCS: 85025; 86850; 86900; 86901